=== PATIENT | female | born 1980 | race Hispanic/Latino ===

== ENCOUNTER 2019-07-30 13:34 | Emergency (ER) | payer OTHER, SELFPAY ==
[2019-07-30] MEDS ORDERED: Ondansetron PF 4 MG/2 ML Vial ONE (14:02)
[2019-07-30 14:37] LABS: #Lymphocytes 1.4 thou/uL (1.20-3.40); #Monocytes 0.5 thou/uL (0.11-0.59); #Neutrophils 13.9 thou/uL (1.40-6.50); %Basophils 0.1 % (0.0-1.0); %Eosinophils 0.2 % (0.0-10.0); %Neutrophils 87.7 % (42.0-75.0); Hemoglobin 12.5 g/dL (12.0-16.0); Mean Corpuscular HGB CONC 33.7 g/dL (32.0-36.0); Mean Corpuscular Hemoglobin 27.6 pg (27.0-31.0); Mean Platelet Volume 8.5 fL (7.4-10.4); Platelet Count 250 thou/uL (130-400); RBC Distribution Width 13.7 % (11.5-14.5); Red Blood Cell (RBC) Count 4.55 mill/uL (4.20-5.40); White Blood Cell (WBC) Count 15.8 thou/uL (4.8-10.8)
[2019-07-30 15:00] LABS: ALT (SGPT) 33 U/L (8-55); AST (SGOT) 28 U/L (5-34); Albumin 3.6 g/dL (3.5-5.0); Alkaline Phosphatase 84 U/L (40-110); Anion Gap 16 mmol/L (10-20); BUN (Urea Nitrogen) 5 mg/dL (7.0-18.7); Bilirubin, Total 0.8 mg/dL (0.2-1.2); Calc. Creatinine Clearance 0 mL/min (70-130); Calcium 9.3 mg/dL (7.8-10.44); Carbon Dioxide 23 mmol/L (22-29); Chloride 100 mmol/L (98-107); Estimated GFR-MDRD Greater than 90; Globulin 3.6 g/dL (2.4-3.5); Glucose 90 mg/dL (70-105); Potassium 3.8 mmol/L (3.5-5.1); Protein, Total 7.2 g/dL (6.0-8.3); Sodium 135 mmol/L (136-145)
--- NOTE | 2019-07-31 00:17 | CON ---
DATE OF CONSULTATION: 07/30/2019 HISTORY OF PRESENT ILLNESS: I got a call prior to the patient's presentation that the patient was coming in with nausea, vomiting, and blood pressures in the 70s/40s and was asked to come by and check on her. At the time, plan was made that they would be contacting me when she presented. I did come down to the emergency room to follow up with the request as I had not been contacted. The patient at that time was resting comfortably in a stretcher bed in the hallway as the ER apparently was full. In my discussion with the patient, she reports that she came to the emergency room because of nausea and vomiting and that she was told to go the hospital if her blood pressure was above 140 systolic or 105 diastolic. The patient reports that she had some elevated pressures, but she also reports that she has been having nausea, vomiting since yesterday, 30+ times. She reports that she has had vomited a small amount of blood and that she is having a lot of burning in her esophagus. Since arrival to the emergency room, she has not had any witnessed vomiting. She does state that she has Phenergan at home, was unable to take it because of her vomiting. During her workup here, blood pressures have all been within normal limits. Labs were performed and found to be essentially unremarkable. The patient was receiving IV hydration. The patient in our conversation reports that nausea, vomiting has been an ongoing problem with her . She does not believe that she has had any sick contacts or has eaten anything to stir the situation. She denies any sick contacts at home. She believes that her vomiting is due to the . The patient in our conversation also reported that she has a history of elevated blood pressures and believes that she was on blood pressure medication. Upon reviewing the medication, she actually had Phenergan and had not been given any other medications. Also upon review of her prior presentations to the emergency room, she actually was not admitted to the hospital, but was here for evaluation under the care of her primary provider, Dr. Marko Stiles. Blood pressures all within normal limits. It appears the patient was discharged home with precautions to seek medical attention should her blood pressures rise. PAST MEDICAL HISTORY: Negative. PAST SURGICAL HISTORY: Negative. SOCIAL HISTORY: Denies drug, alcohol, or tobacco use. PHYSICAL EXAMINATION: VITAL SIGNS: Blood pressure ranges from 120/84 to 128/80, pulse in the 70s, respiratory rate 16, temperature 98.4, saturating 99% on room air. GENERAL: She appears to be in no acute distress. She is resting comfortably with her legs crossed, sitting up in her bed. She is alert, oriented, cooperative, pleasant to interact with. IMAGING: Bedside ultrasound performed by the ER physician reports good visualization of a moving active fetus. Heart tones are not documented other than normal heart tones. ASSESSMENT AND PLAN: Given that the patient appears to be stable without any complications, has been present for an hour or 2 without any vomiting and no lab abnormalities and blood pressures being normal, I have confirmed with Dr. Wolfe that I do not see any indication for admission. I did recommend rectal Phenergan and sublingual Zofran as the patient reports she was unable to take her oral Phenergan due to her vomiting. The patient has been asked to follow up with Dr. Stiles in 1-2 days for followup. She has also been just briefly educated on the importance of proper technique for blood pressure monitoring. I have asked her to take her blood pressure cuff to the clinic when she goes to compare the results of her machine with the machine at the clinic. Job ID: [id number]
== END 2019-07-30 15:51 | disposition home or self-care (01) ==
LOC: ERS 13:34
DX: O21.2 Late vomiting of pregnancy (principal); O99.112 Other diseases of the blood and blood-forming organs and certain disorders involving the immune mechanism complicating pregnancy, second trimester; D72.829 Elevated white blood cell count, unspecified; Z3A.22 22 weeks gestation of pregnancy
CPT/HCPCS: 80053; 85025; 93005; 96361; 96374; J2405

== ENCOUNTER 2019-08-18 10:06 | Emergency (ER) | payer OTHER ==
[2019-08-18] MEDS ORDERED: Ondansetron PF 4 MG/2 ML Vial ONE (11:27)
[2019-08-18 12:07] LABS: Bacteria/HPF None Seen HPF (None Seen); Bilirubin 1+ (Negative); Blood, Urine Negative (Negative); Clarity Turbid (Clear); Glucose, Urine (Dipstick) Normal (Negative); Leukocyte Negative Leu/uL (Negative); Nitrite Negative (Negative); Protein, Urine (Dipstick) 30 mg/dL (Neg-Trace); RBC/HPF 0-3 HPF (0-3)
== END 2019-08-18 14:08 | disposition home or self-care (01) ==
LOC: ERS 10:06
DX: O21.0 Mild hyperemesis gravidarum (principal); O10.912 Unspecified pre-existing hypertension complicating pregnancy, second trimester; Z3A.27 27 weeks gestation of pregnancy
CPT/HCPCS: 81003; 81015; 96374; J2405

== ENCOUNTER 2019-08-29 09:01 | Emergency (ER) | payer OTHER ==
[2019-08-29] MEDS ORDERED: Ondansetron PF 4 MG/2 ML Vial ONE (09:24)
[2019-08-29 09:50] LABS: #Lymphocytes 1.7 thou/uL (1.20-3.40); #Monocytes 0.5 thou/uL (0.11-0.59); #Neutrophils 8.3 thou/uL (1.40-6.50); %Basophils 0.1 % (0.0-1.0); %Eosinophils 0.2 % (0.0-10.0); %Lymphocytes 16.5 % (21.0-51.0); %Neutrophils 78.2 % (42.0-75.0); Hemoglobin 13.2 g/dL (12.0-16.0); Mean Corpuscular HGB CONC 33.6 g/dL (32.0-36.0); Mean Corpuscular Hemoglobin 27.5 pg (27.0-31.0); Mean Corpuscular Volume 81.9 fL (78.0-98.0); Mean Platelet Volume 8.7 fL (7.4-10.4); Platelet Count 266 thou/uL (130-400); RBC Distribution Width 13.3 % (11.5-14.5); Red Blood Cell (RBC) Count 4.78 mill/uL (4.20-5.40); White Blood Cell (WBC) Count 10.6 thou/uL (4.8-10.8)
[2019-08-29 10:12] LABS: ALT (SGPT) 18 U/L (8-55); AST (SGOT) 15 U/L (5-34); Albumin 3.5 g/dL (3.5-5.0); Alkaline Phosphatase 123 U/L (40-110); Anion Gap 15 mmol/L (10-20); BUN (Urea Nitrogen) 8 mg/dL (7.0-18.7); Bilirubin, Total 0.3 mg/dL (0.2-1.2); Calc. Creatinine Clearance 0 mL/min (70-130); Calcium 8.8 mg/dL (7.8-10.44); Carbon Dioxide 22 mmol/L (22-29); Chloride 101 mmol/L (98-107); Estimated GFR-MDRD 89; Glucose 142 mg/dL (70-105); Lipase 29 U/L (8-78); Potassium 3.6 mmol/L (3.5-5.1); Protein, Total 6.5 g/dL (6.0-8.3); Sodium 134 mmol/L (136-145)
[2019-08-29 10:31] LABS: Bilirubin Moderate (Negative); Blood, Urine Negative (Negative); Glucose, Urine (Dipstick) Negative (Negative); Leukocyte Negative (Negative); Nitrite Negative (Negative); Protein, Urine (Dipstick) 30 mg/dL (Neg-Trace); Urobilinogen 0.2 mg/dL (Less than 2)
[2019-08-29 10:53] LABS: Clarity Turbid (Clear)
[2019-08-29 10:56] LABS: Bacteria/HPF None Seen HPF (None Seen); RBC/HPF 0-3 HPF (0-3); WBC/HPF 0-3 HPF (0-3)
== END 2019-08-29 12:15 | disposition home or self-care (01) ==
LOC: ERS 09:01
DX: O21.2 Late vomiting of pregnancy (principal); Z3A.29 29 weeks gestation of pregnancy
CPT/HCPCS: 36415; 80053; 81003; 81015; 83690; 85025; 96361; 96374; J2405

== ENCOUNTER 2019-09-17 14:47 | Inpatient (IN) | payer MEDICAID, OTHER, SELFPAY ==
[2019-09-17 15:24] VITALS: BMI 27.4
[2019-09-17] MEDS ORDERED: hydrALAZINE 20 MG/ML VIAL SLOW IVP PRN ×2 (16:02→18:19)
[2019-09-17 16:24] LABS: Bacteria/HPF None Seen HPF (None Seen); Bilirubin Negative (Negative); Blood, Urine Negative (Negative); Clarity Clear (Clear); Glucose, Urine (Dipstick) Normal (Negative); Leukocyte Negative Leu/uL (Negative); Nitrite Negative (Negative); Protein, Urine (Dipstick) 50 mg/dL (Neg-Trace); RBC/HPF 0-3 HPF (0-3); Urobilinogen Normal mg/dL (Less than 2); WBC/HPF 0-3 HPF (0-3)
[2019-09-17 16:42] LABS: Creatinine, Urine 315.01 mg/dL (47-110)
[2019-09-17 16:52] LABS: #Monocytes 0.5 thou/uL (0.11-0.59); %Basophils 0.1 % (0.0-1.0); %Eosinophils 0.3 % (0.0-10.0); %Monocytes 5.4 % (0.0-10.0); %Neutrophils 73.2 % (42.0-75.0); Hemoglobin 12.1 g/dL (12.0-16.0); Mean Corpuscular HGB CONC 33.4 g/dL (32.0-36.0); Mean Corpuscular Hemoglobin 27.5 pg (27.0-31.0); Mean Corpuscular Volume 82.1 fL (78.0-98.0); Mean Platelet Volume 9.7 fL (7.4-10.4); Platelet Count 186 thou/uL (130-400); RBC Distribution Width 13.2 % (11.5-14.5); Red Blood Cell (RBC) Count 4.41 mill/uL (4.20-5.40); White Blood Cell (WBC) Count 9.5 thou/uL (4.8-10.8)
[2019-09-17 17:09] LABS: ALT (SGPT) 9 U/L (8-55); AST (SGOT) 14 U/L (5-34); Albumin 3.1 g/dL (3.5-5.0); Alkaline Phosphatase 126 U/L (40-110); Anion Gap 12 mmol/L (10-20); BUN (Urea Nitrogen) 6 mg/dL (7.0-18.7); Bilirubin, Total 0.4 mg/dL (0.2-1.2); Calc. Creatinine Clearance 135 mL/min (70-130); Calcium 8.8 mg/dL (7.8-10.44); Carbon Dioxide 24 mmol/L (22-29); Chloride 103 mmol/L (98-107); Estimated GFR-MDRD Greater than 90; Globulin 3.1 g/dL (2.4-3.5); Glucose 67 mg/dL (70-105); Potassium 3.9 mmol/L (3.5-5.1); Protein, Total 6.2 g/dL (6.0-8.3); Sodium 135 mmol/L (136-145)
[2019-09-17] MEDS ORDERED: Acetaminophen 500 MG TAB PO PRN (18:19)
[2019-09-17] MEDS ORDERED: Butorphanol Tartrate 1 MG/ML VIAL SLOW IVP PRN (18:19)
[2019-09-17] MEDS ORDERED: Ondansetron PF 4 MG/2 ML Vial IVP PRN (18:19)
[2019-09-17] MEDS ORDERED: Zolpidem Tartrate 5 MG TAB PO PRN (18:19)
[2019-09-17] MEDS ORDERED: Promethazine HCl 25 MG/ML VIAL IM PRN (18:19)
--- NOTE | 2019-09-17 18:26 | PDOC.LDHP ---
Labor and Delivery H&P Chief complaint: other HPI: 39 yo LAF presents c/o N with emesis this AM x4. Has intermittent mild HUGHES, denies visual changes or RUQ pain. Also reports elevated BPs at home. Current gestational age (weeks): 32 Due date: 11/11/19 Dating criteria: last menstrual period Grav: 3 Para: 2 OB History Details: PNC with Dr. Stiles. Had elevated BPs at 24 weeks and was given steroids at ~[address] Stiles. Current complications: other (as above) Abnormal US findings: No Past Medical History: none Current medications: pre-yasmeen vitamins Previous surgical history: none Allergies/Adverse Reactions: Allergies Allergy/AdvReac Type Severity Reaction Status Date / Time No Known Allergies Allergy Verified 09/17/19 15:24 Social history: none - Physical Exam Abnormal vital signs: 140s/90s General: NAD Heart: RRR Lungs: nonlabored breathing Abdomen: gravid Extremeties: trace edema FHT: category 1 Portis contractions every: no UCs seen - OB Labs GBS: unknown - Assessment 32 1/7 week IUP r/o severe PIH Had course of steroids at 24 weeks - Plan Plan: observation in L&D (Serial BPs Repeat labs in AM Dr. Stiles aware of admit)
[2019-09-18 04:10] VITALS: TEMP 98
[2019-09-18 05:20] VITALS: BP 121/68
[2019-09-18 07:23] LABS: #Monocytes 0.6 thou/uL (0.11-0.59); #Neutrophils 6.8 thou/uL (1.40-6.50); %Eosinophils 0.4 % (0.0-10.0); %Lymphocytes 20.9 % (21.0-51.0); %Monocytes 6.3 % (0.0-10.0); %Neutrophils 72.3 % (42.0-75.0); Hemoglobin 12.2 g/dL (12.0-16.0); Mean Corpuscular HGB CONC 33.7 g/dL (32.0-36.0); Mean Corpuscular Hemoglobin 27.7 pg (27.0-31.0); Mean Corpuscular Volume 82.3 fL (78.0-98.0); Mean Platelet Volume 9.6 fL (7.4-10.4); Platelet Count 184 thou/uL (130-400); RBC Distribution Width 13.3 % (11.5-14.5); Red Blood Cell (RBC) Count 4.41 mill/uL (4.20-5.40); White Blood Cell (WBC) Count 9.3 thou/uL (4.8-10.8)
[2019-09-18 07:39] LABS: ALT (SGPT) 10 U/L (8-55); AST (SGOT) 13 U/L (5-34); Alkaline Phosphatase 120 U/L (40-110); Anion Gap 13 mmol/L (10-20); BUN (Urea Nitrogen) 5 mg/dL (7.0-18.7); Bilirubin, Total 0.4 mg/dL (0.2-1.2); Calc. Creatinine Clearance 144 mL/min (70-130); Calcium 8.4 mg/dL (7.8-10.44); Carbon Dioxide 21 mmol/L (22-29); Chloride 104 mmol/L (98-107); Estimated GFR-MDRD Greater than 90; Globulin 2.9 g/dL (2.4-3.5); Glucose 68 mg/dL (70-105); Potassium 3.6 mmol/L (3.5-5.1); Protein, Total 5.9 g/dL (6.0-8.3); Sodium 134 mmol/L (136-145)
--- NOTE | 2019-09-19 14:55 | DIS ---
DATE OF ADMISSION: 09/17/2019 DATE OF DISCHARGE: 09/18/2019 ADMITTING DIAGNOSIS: Elevated blood pressures. DISCHARGE DIAGNOSIS: Gestational hypertension. BRIEF HISTORY: This is a 39-year-old female, G3, P2 at 32 weeks estimated gestational age with intermittent headaches and elevated blood pressures at home. HOSPITAL COURSE: Ms. Roblero was observed overnight in Labor and Delivery. Her blood pressures generally were in the normal range. However, she did have three elevated blood pressures during the course of her stay. CBC showed normal platelets. Comprehensive metabolic panel showed normal LFTs and the urine protein to creatinine ratio was normal. monitoring showed category I heart tracings with no contractions. She was discharged in good condition on 09/18/2019. DISCHARGE INSTRUCTIONS: Activities as tolerated. Check and record blood pressures t.i.d. Followup is scheduled in two days. Job ID: [id number]
== END 2019-09-18 13:08 | disposition home or self-care (01) | DRG 833 ==
LOC: L&D/OP 14:47 → L&D 19:10
PROVIDERS: ADMIT Family Medicine; ATTEND Family Medicine
DX: O26.893 Other specified pregnancy related conditions, third trimester (principal); Z3A.32 32 weeks gestation of pregnancy; R03.0 Elevated blood-pressure reading, without diagnosis of hypertension
CPT/HCPCS: 36415; 80053; 81003; 81015; 82570; 84156; 85025; 86850; 86900; 86901; 99285

== ENCOUNTER 2019-10-06 13:09 | Inpatient (IN) | payer MEDICAID, SELFPAY ==
[2019-10-06] MEDS ORDERED: Ondansetron ODT 8 MG TAB SL SCH (15:00)
[2019-10-06] MEDS ORDERED: Lactated Ringer's 2,000 ML IV SCH (15:00)
[2019-10-06] MEDS: hydrALAZINE 20 MG/ML VIAL SLOW IVP PRN ×2 (15:43→16:04)
[2019-10-06 15:54] LABS: Hemoglobin 12.7 g/dL (12.0-16.0); Mean Corpuscular HGB CONC 34.4 g/dL (32.0-36.0); Mean Corpuscular Hemoglobin 28.4 pg (27.0-31.0); Mean Corpuscular Volume 82.6 fL (78.0-98.0); Mean Platelet Volume 9.9 fL (7.4-10.4); Platelet Count 122 thou/uL (130-400); RBC Distribution Width 13.5 % (11.5-14.5); Red Blood Cell (RBC) Count 4.46 mill/uL (4.20-5.40); White Blood Cell (WBC) Count 11.8 thou/uL (4.8-10.8)
[2019-10-06] MEDS ORDERED: Ondansetron PF 4 MG/2 ML Vial IVP PRN ×2 (16:07→17:54)
[2019-10-06] MEDS ORDERED: hydrALAZINE 20 MG/ML VIAL SLOW IVP PRN ×2 (16:07→16:36)
[2019-10-06] MEDS ORDERED: Calcium Gluc 4.6 MEQ/10 ML (100 MG/ML) SLOW IVP PRN (16:07)
[2019-10-06 16:14] LABS: ALT (SGPT) 44 U/L (8-55); AST (SGOT) 47 U/L (5-34); Albumin 3.2 g/dL (3.5-5.0); Alkaline Phosphatase 165 U/L (40-110); Anion Gap 13 mmol/L (10-20); BUN (Urea Nitrogen) 10 mg/dL (7.0-18.7); Bilirubin, Total 0.5 mg/dL (0.2-1.2); Calc. Creatinine Clearance 130 mL/min (70-130); Calcium 8.9 mg/dL (7.8-10.44); Carbon Dioxide 23 mmol/L (22-29); Chloride 103 mmol/L (98-107); Estimated GFR-MDRD Greater than 90; Globulin 3.1 g/dL (2.4-3.5); Glucose 96 mg/dL (70-105); Potassium 3.8 mmol/L (3.5-5.1); Protein, Total 6.3 g/dL (6.0-8.3); Sodium 135 mmol/L (136-145); Uric Acid 7.2 mg/dL (2.6-6.0)
[2019-10-06] MEDS ORDERED: Magnesium Sulfate 20 GM/WATER 500 ML BAG IVPB SCH (16:15)
[2019-10-06] MEDS ORDERED: Betamet Acet/Betamet Na Ph 30 MG/5 ML VIAL IM SCH (16:15)
[2019-10-06] MEDS ORDERED: NIFEdipine XL 30 MG TAB PO SCH (16:15)
[2019-10-06 16:30] LABS: Amphetamine Not Detected (NotDetected); Barbiturates Screen Not Detected (NotDetected); Benzodiazepine Screen Not Detected (NotDetected); Cocaine Metabolite Screen Not Detected (NotDetected); Medtox Control Line Valid? VALID (VALID); Medtox Reader # READER 4; Methadone Not Detected (NotDetected); Methamphetamine Not Detected (NotDetected); Opiate Screen Not Detected (NotDetected); Oxycodone Screen Not Detected (NotDetected); Phencyclidine (PCP) Not Detected (NotDetected); THC/Cannabinoid Screen Not Detected (NotDetected); Tricyclic Screen Not Detected (NotDetected)
[2019-10-06 16:39] LABS: Creatinine, Urine 229.56 mg/dL (47-110)
[2019-10-06] MEDS: Lactated Ringer's 1,000 ML IV SCH (16:44)
--- NOTE | 2019-10-06 16:50 | ULT ---
Obstetric sonogram Limited HISTORY: Third trimester gestation. Evaluate for weight and position. FINDINGS: Single intrauterine gestation in cephalic presentation. Ossification of the cranium obscure s the cervix. Heart motion is demonstrated at 140 bpm. Advanced age limits anatomic detail. Amniotic fluid index 10.5. Grade 1 placenta is posterior. Measurements are as follows: Biparietal diameter 34 weeks 1 day Head circumference 34 weeks 5 days Abdominal circumference 33 weeks 2 days Femur length 33 weeks 1 day Hadlock 12 percentile. Estimated weight 2207 g (4 lbs. 14 oz.). IMPRESSION: Single intrauterine gestation in cephalic presentation. Estimated gestational age based o n today's sonogram 33 weeks 6 days.
[2019-10-06 17:10] LABS: Syphilis Antibody Nonreactive (Nonreactive); Syphilis Antibody Index 0.03 S/CO (<1.00 Non-Reactive)
[2019-10-06 17:11] LABS: HBSAg Index 0.28 S/CO (0-0.99); Hep B Surf Ag Non-Reactive S/CO (NonReactive)
[2019-10-06] MEDS ORDERED: Promethazine HCl 25 MG/ML VIAL IM PRN (17:54)
[2019-10-06] MEDS ORDERED: Ibuprofen 800 MG TAB PO PRN (17:54)
[2019-10-06] MEDS ORDERED: HYDROcodone/Acetaminophen 5/325 mg Tablet PO PRN (17:54)
[2019-10-06] MEDS ORDERED: NS / Oxytocin 40 units/1000ml 1,000 ML IV PRN (17:54)
[2019-10-06] MEDS ORDERED: Carboprost 250 MCG/ML AMP IM PRN (17:54)
[2019-10-06] MEDS ORDERED: Diphenoxylate HCl/Atropine Tablet PO PRN (17:54)
[2019-10-06] MEDS ORDERED: Misoprostol 200 MCG TAB PR PRN (17:54)
[2019-10-06] MEDS ORDERED: Lidocaine 1% (PF) 30 ML VIAL SC PRN (17:54)
[2019-10-06] MEDS ORDERED: Labetalol HCl 100 MG/20 ML VIAL SLOW IVP PRN (17:59)
[2019-10-06] MEDS ORDERED: Penicillin G Potassium 5 MILL.UNITS in Sodium Chloride 0.9% 100 ML IVPB SCH (18:00)
[2019-10-06] MEDS ORDERED: hydrALAZINE 20 MG/ML VIAL SLOW IVP SCH (18:00)
[2019-10-06] MEDS ORDERED: NS w/ Oxytocin 10 units 500 ML IV SCH ×2 (18:00)
--- NOTE | 2019-10-06 18:28 | HP ---
PRIMARY OB: Dr. Marko Stiles. CHIEF COMPLAINT: Nausea, vomiting, and elevated blood pressures. HISTORY OF PRESENT ILLNESS: The patient is a 39-year-old G6, P2 female with an intrauterine at 34 weeks and 6 days, reporting a history of chronic hypertension, diagnosed in [place], had been on a medication, not recognized by myself, who presents to Labor and Delivery with nausea and vomiting since last night and reported elevated blood pressures. The patient reports that she believes the nausea and vomiting are associated with the as she gets these periods of episodic severe vomiting. She has not had anything to eat since last night, has vomited about 5 times and reports that she has not urinated for about the last 6 hours. She reports that she was concerned about her blood pressures and took them at home and noted that they were 180/107. She went to a local store and had been checked there and they were also running in the 180s systolic, so the patient came here for evaluation. The patient reports a mild headache. She denies any vision changes, any abdominal pain, shortness of breath, any fever, any new rashes, hip problems, knee problems, muscle weakness, burning when she pees, vaginal discharge or bleeding or urinary urgency or frequency. PAST MEDICAL HISTORY: The patient reports chronic hypertension, nausea, and vomiting with this . PAST SURGICAL HISTORY: Negative. SOCIAL HISTORY: Denies drug, alcohol, or tobacco use. She has moved here from [place] about one year ago. OB LABORATORY DATA: Blood type is B positive. Antibody screen is negative. She is rubella immune. Hepatitis B surface antigen is negative. RPR is nonreactive. HIV is negative. GC chlamydia was negative. She had with high-grade lesion, for which she reports that she has had a colposcopy a couple of weeks ago. REVIEW OF SYSTEMS: Per HPI. PHYSICAL EXAMINATION: VITAL SIGNS: Blood pressure on arrival 140/101. She has blood pressures over the course about an hour after arriving spiked into the severe range maxing out at 180/110. After two doses of 5 mg of hydralazine, blood pressure is now 150/86. GENERAL: She appears to be in no acute distress. She is alert, oriented, cooperative, and pleasant to interact with. HEAD: Normocephalic, atraumatic. LUNGS: Clear to auscultation bilaterally. HEART: Has a regular rate and rhythm. ABDOMEN: Gravid, soft, nontender. EXTREMITIES: She has minimal to no edema. She has 1+ DTRs. : Has been deferred. DIAGNOSTIC STUDIES: heart tracing shows a fetus with a baseline in the 140s with moderate long-term variability, positive 15 x 15 accelerations, no decelerations. Tocometer is without contractions. computer technologist is at bedside getting ultrasound, but reports at this point that weight is pending. LABORATORY DATA: Drug screen negative. White count of 11.8, hemoglobin 12.7, hematocrit 36.8, and platelets of 122, down approximately 150,000 from about a month ago. Sodium 135, potassium 3.8, BUN 10, creatinine 0.68, uric acid 7.2, T bilirubin of 0.5, AST of 47, ALT of 44. Urine protein to creatinine ratio is pending. ASSESSMENT AND PLAN: The patient is a 39-year-old female with elevated blood pressures, who may be experiencing exacerbation of chronic hypertension, but given the overall picture is likely developing preeclampsia with what appears to be developing thrombocytopenia, borderline abnormalities in her LFTs and in the severe range pressures. Her primary OB, Dr. Marko Stiles has been notified, who will be admitting to her. She has been placed on magnesium for seizure prophylaxis, is being given a rescue dose of steroids. Further management decisions will be deferring to Dr. Stiles. I have notified the nurse to forward all updates to him. Job ID: [id number]
[2019-10-06] MEDS ORDERED: Labetalol 100 MG TAB PO SCH (18:30)
[2019-10-06] MEDS ORDERED: Penicillin G 2.5 MILL.units 2.5 MILL.UNITS in Premix Bag 1 BAG IVPB SCH (22:00)
[2019-10-06] MEDS ORDERED: Lidocaine 1% (PF) 30 ML VIAL ONE (22:15)
[2019-10-06] MEDS ORDERED: NS / Oxytocin 40 units/1000ml 1,000 ML ONE (22:15)
[2019-10-06] MEDS: NS / Oxytocin 40 units/1000ml 1,000 ML IV SCH (22:20)
[2019-10-07] MEDS: NS / Oxytocin 40 units/1000ml 1,000 ML IV SCH (00:15)
[2019-10-07] MEDS ORDERED: cloNIDine 0.1 MG TAB PO PRN (00:57)
[2019-10-07] MEDS ORDERED: hydrALAZINE 20 MG/ML VIAL SLOW IVP PRN (00:57)
[2019-10-07] MEDS ORDERED: Bisacodyl 10 MG SUPP PR PRN (00:57)
[2019-10-07] MEDS ORDERED: Ondansetron PF 4 MG/2 ML Vial IVP PRN (00:57)
[2019-10-07] MEDS ORDERED: Promethazine HCl 25 MG/ML VIAL IM PRN (00:57)
[2019-10-07] MEDS ORDERED: Lanolin Ointment 7 GM TUBE TOP PRN (00:57)
[2019-10-07] MEDS ORDERED: Milk Of Magnesia 30 ML UDCUP PO PRN (00:57)
[2019-10-07] MEDS ORDERED: HYDROcodone/Acetaminophen 5/325 mg Tablet PO PRN (00:57)
[2019-10-07] MEDS ORDERED: diphenhydrAMINE 25 MG CAP PO PRN (00:57)
[2019-10-07] MEDS: HYDROcodone/Acetaminophen 5/325 mg Tablet PO PRN ×3 (01:05→13:06)
[2019-10-07] MEDS: Magnesium Sulfate 20 gm/500 ml 20 GM/500 ML BAG IVPB SCH ×2 (02:30→13:06)
[2019-10-07] MEDS: Ibuprofen 800 MG TAB PO SCH ×3 (05:36→23:43)
[2019-10-07 05:57] LABS: Hemoglobin 12.6 g/dL (12.0-16.0); Mean Corpuscular HGB CONC 33.2 g/dL (32.0-36.0); Mean Corpuscular Hemoglobin 27.4 pg (27.0-31.0); Mean Corpuscular Volume 82.4 fL (78.0-98.0); Mean Platelet Volume 10.4 fL (7.4-10.4); Platelet Count 146 thou/uL (130-400); RBC Distribution Width 13.8 % (11.5-14.5); Red Blood Cell (RBC) Count 4.61 mill/uL (4.20-5.40); White Blood Cell (WBC) Count 18.8 thou/uL (4.8-10.8)
[2019-10-07] MEDS: Prenatal Vitamin 1 TAB PO SCH (08:15)
[2019-10-07] MEDS ORDERED: Adacel (T-DAP) 0.5 ML SYRINGE IM ONE (09:00)
[2019-10-07] MEDS: Ferrous Sulfate 325 MG TAB PO SCH ×2 (10:49→17:37)
[2019-10-07] MEDS: Docusate Calcium (SURFAK) 240 MG CAP PO SCH ×2 (10:49→21:06)
[2019-10-07] MEDS: Lactated Ringer's 1,000 ML IV SCH (19:34)
[2019-10-08] MEDS: Ibuprofen 800 MG TAB PO SCH ×3 (05:43→22:23)
[2019-10-08] MEDS: Prenatal Vitamin 1 TAB PO SCH (08:14)
[2019-10-08] MEDS: Docusate Calcium (SURFAK) 240 MG CAP PO SCH ×2 (08:14→22:23)
[2019-10-08] MEDS: Ferrous Sulfate 325 MG TAB PO SCH ×2 (08:19→17:10)
[2019-10-09] MEDS: Ibuprofen 800 MG TAB PO SCH ×2 (05:14→13:44)
[2019-10-09] MEDS: Ferrous Sulfate 325 MG TAB PO SCH (09:15)
[2019-10-09] MEDS: Docusate Calcium (SURFAK) 240 MG CAP PO SCH (09:34)
[2019-10-09] MEDS: Prenatal Vitamin 1 TAB PO SCH (09:34)
[2019-10-09 11:51] VITALS: BP 130/76; TEMP 99
== END 2019-10-09 17:20 | disposition home or self-care (01) | DRG 807 ==
LOC: L&D/OP 13:09 → L&D 17:35 → 3SW 10-08 02:55
PROVIDERS: ADMIT Family Medicine; ATTEND Family Medicine
PROC: 10E0XZZ Delivery of Products of Conception, External Approach (ICD-10-PCS; principal; 2019-10-07)
PROC: 10907ZC Drainage of Amniotic Fluid, Therapeutic from Products of Conception, Via Natural or Artificial Opening (ICD-10-PCS; 2019-10-07)
PROC: 3E0P7VZ Introduction of Hormone into Female Reproductive, Via Natural or Artificial Opening (ICD-10-PCS; 2019-10-07)
PROC: 3E033VJ Introduction of Other Hormone into Peripheral Vein, Percutaneous Approach (ICD-10-PCS; 2019-10-07)
DX: O14.14 Severe pre-eclampsia complicating childbirth (principal); Z37.0 Single live birth; O69.81X0 Labor and delivery complicated by cord around neck, without compression, not applicable or unspecified; Z3A.34 34 weeks gestation of pregnancy
CPT/HCPCS: 36415; 51702; 76815; 80053; 80306; 82570; 83735; 84156; 84550; 85027; 86780; 86850; 86900; 86901; 87340; 88307; 90715; 99285; J0360; J0702; J2001; J2550; J2590; J3475